=== PATIENT | female | born 1980 ===

== ENCOUNTER 2016-12-16 13:00 | Emergency (ER) | payer OTHER ==
[2016-12-16 13:07] VITALS: RESP 16; TEMP 97.8; O2SAT 100
[2016-12-16] MEDS ORDERED: Sodium Chloride 0.9% 1,000 ML IV ONE (13:19)
--- NOTE | 2016-12-16 13:32 | C.PDOC ---
History Of Present Illness 12/16/2016 Jo Mckeon is a 36 y/o female, whose past medical history includes cholecystectomy, presents to the emergency department complaining of epigastric pain since two days ago. Patient reports having a burning sensation and gastric content that is very acidic in her mouth. Patient states she has food intolerance due to a sharp tearing pain after eating. In addition, patient reports vomiting and one episode of diarrhea when the pain began and the discomfort has been intermittent. Pain is worse and uncomfortable when lying on either side. Patient notes taking Omeprazole this morning, which relieved the pain. Her last menstrual cycle was 12/02/2016. Patient denies chest pain, shortness of breath, headache, fever, chills, cough, dysuria, hematuria, frequency, flank pain, or other complaints. Time Seen by Provider: 12/16/16 13:09 Chief Complaint (Nursing): Abdominal Pain History Per: Patient History/Exam Limitations: no limitations Onset/Duration Of Symptoms: Days (2 days) Current Symptoms Are (Timing): Better (after taking Mitrazol) Location Of Pain/Discomfort: Epigastric Quality Of Discomfort: Sharp, Aching, Burning Associated Symptoms: Vomiting, Diarrhea. denies: Fever, Chest Pain Exacerbating Factors: Other (lying on either side) Abnormal Vaginal Bleeding: No Past Medical History Reviewed: Historical Data, Nursing Documentation, Vital Signs Vital Signs: Last Vital Signs Temp 97.8 F 12/16/16 13:06 Pulse 78 12/16/16 13:06 Resp 16 12/16/16 13:06 BP 111/68 12/16/16 13:06 Pulse Ox 100 12/16/16 13:39 - Medical History PMH: Gastritis Denies: Chronic Kidney Disease - [facility] Procedures ENDOSCOPIC REMOVAL OF STONE(S) FROM BILIARY TRACT (04/01/14) ENDOSCOPIC SPHINCTEROTOMY AND PAPILLOTOMY (04/01/14) INFLUENZA VACCINATION (04/01/14) LAPAROSCOPIC CHOLECYSTECTOMY (04/01/14) Family History: States: Diabetes - Social History Hx Tobacco Use: Yes Hx Alcohol Use: No Hx Substance Use: No - Immunization History Hx Tetanus Toxoid Vaccination: No Hx Influenza Vaccination: No Hx Pneumococcal Vaccination: No Review Of Systems Constitutional: Negative for: Fever Cardiovascular: Negative for: Chest Pain Respiratory: Negative for: Shortness of Breath Gastrointestinal: Positive for: Vomiting, Abdominal Pain (epigastric), Diarrhea Genitourinary: Negative for: Dysuria, Frequency Neurological: Negative for: Headache Physical Exam - Physical Exam Appears: Well, Non-toxic, No Acute Distress Skin: Normal Color, Warm, Dry Head: Atraumatic, Normacephalic Eye(s): bilateral: Normal Inspection, PERRL, EOMI Ear(s): Bilateral: Normal Nose: Normal Oral Mucosa: Moist Tongue: Normal Appearing Lips: Normal Appearing Throat: Normal Neck: Normal Cardiovascular: Rhythm Regular Respiratory: Normal Breath Sounds Gastrointestinal/Abdominal: Bowel Sounds (normal), Tenderness (mild tenderness on epigastric region), No Distention, No Guarding, No Rebound Extremity: Normal ROM Neurological/Psych: Oriented x3, Normal Speech, Normal Cognition Gait: Steady ED Course And Treatment - Laboratory Results Result Diagrams: 12/16/16 13:49 12/16/16 13:49 Lab Interpretation: No Acute Changes O2 Sat by Pulse Oximetry: 100 (air room) Pulse Ox Interpretation: Normal Reevaluation Time: 14:28 Reassessment Condition: Improved (Patient remains comfortable after IV fluids and Pepcid IV.) Medical Decision Making Medical Decision Makin12/16/2016 Impression: 36 y/o female with epigastric pain and food intolerance due to acidic content. Plan: -- Labs -- Urinalysis -- Pepcid and Sodium Chloride -- Reassess and disposition Disposition - Disposition Referrals: Anabelle Craft MD [Staff Provider] - Disposition: HOME/ ROUTINE Disposition Time: 14:28 Condition: IMPROVED Prescriptions: Famotidine [Pepcid] 20 mg PO BID #60 tab Instructions: Epigastric Pain (ED) Forms: [facility] (Citizen [place]) - Clinical Impression Clinical Impression: Epigastric abdominal pain - Scribe Statement The provider has reviewed the documentation as recorded by the Scribe 12/16/2016 Scribe Attestation: Angélica Goodson MD Scribe Attestation: All medical record entries made by the Scribe were at my direction and personally dictated by me. I have reviewed the chart and agree that the record accurately reflects my personal performance of the history, physical exam, medical decision making, and the department course for this patient. I have also personally directed, reviewed, and agree with the discharge instructions and disposition.
[2016-12-16 13:57] LABS: BASO % 0.4 % (0.0-2.0); EOS # 0.1 K/uL (0.0-0.7); EOS % 1.3 % (0.0-4.0); HEMATOCRIT 39.4 % (34.0-47.0); LYMPH # 2.1 K/uL (1.0-4.3); LYMPH % 30.6 % (20.0-40.0); MEAN CELL VOLUME 92.6 fL (81.0-99.0); MEAN CORPUSCULAR HEMOGLOBIN 30.3 pg (27.0-31.0); MEAN CORPUSCULAR HGB CONC 32.8 g/dL (33.0-37.0); MEAN PLATELET VOLUME 9.6 fL (7.2-11.7); MONO # 0.4 K/uL (0.0-0.8); MONO % 5.2 % (0.0-10.0); RED CELL DISTRIBUTION WIDTH 12.8 % (11.5-14.5); WHITE BLOOD COUNT 6.7 K/uL (4.8-10.8)
[2016-12-16 14:01] LABS: RBC URINE 10 /hpf (0-3); URINE BILIRUBIN NEGATIVE (NEGATIVE); URINE BLOOD NEGATIVE (NEGATIVE); URINE COLOR Yellow (YELLOW); URINE GLUCOSE (UA) NORMAL (Normal); URINE KETONE NEGATIVE (NEGATIVE); URINE LEUKOCYTE ESTERASE NEG Leu/uL (Negative); URINE PROTEIN NEGATIVE (NEGATIVE); URINE UROBILINOGEN NORMAL mg/dL (0.2-1.0); WBC URINE 3 /hpf (0-5)
[2016-12-16 14:08] LABS: CHLORIDE 102 mmol/L (98-107); POTASSIUM 3.8 mmol/L (3.6-5.2); SODIUM 142 mmol/L (132-148)
[2016-12-16 14:10] LABS: GFR AFRICAN-AMERICAN > 60
[2016-12-16 14:11] LABS: ALB/GLOB RATIO 1.3 (1.0-2.1); ALKALINE PHOSPHATASE 53 U/L (38-126); ALT/SGPT 56 U/L (9-52); AST/SGOT 34 U/L (14-36); BILIRUBIN,TOTAL 0.5 mg/dL (0.2-1.3); BLOOD UREA NITROGEN 12 mg/dL (7-17); CALCIUM 8.2 mg/dl (8.6-10.4); CARBON DIOXIDE 25 mmol/L (22-30); GLUCOSE,RANDOM 94 mg/dL (65-105); TOTAL PROTEIN 7.2 g/dL (6.3-8.3)
[2016-12-16 14:41] VITALS: BP 119/58; PULSE 67
== END 2016-12-16 14:42 | disposition home or self-care (01) ==
LOC: C.ER 13:00
DX: R10.13 Epigastric pain (principal)
CPT/HCPCS: 80053; 81001; 83690; 84703; 85025; 96361; 96374; 99284; J7040

== ENCOUNTER 2017-04-12 08:52 | Emergency (ER) | payer OTHER ==
[2017-04-12 09:07] VITALS: BMI 21.7
[2017-04-12 09:10] VITALS: RESP 16; O2SAT 100
[2017-04-12] MEDS ORDERED: Sodium Chloride 0.9% 1,000 ML IV ONE (09:52)
[2017-04-12 09:55] LABS: RBC URINE 540 /hpf (0-3); URINE BILIRUBIN NEGATIVE (NEGATIVE); URINE BLOOD 3+ (NEGATIVE); URINE COLOR Yellow (YELLOW); URINE GLUCOSE (UA) NORMAL (Normal); URINE HYALINE CAST 0-2 /lpf (0-2); URINE KETONE TRACE mg/dL (NEGATIVE); URINE LEUKOCYTE ESTERASE NEG Leu/uL (Negative); URINE PROTEIN 1+ mg/dL (NEGATIVE); URINE UROBILINOGEN NORMAL mg/dL (0.2-1.0); WBC URINE 2 /hpf (0-5)
--- NOTE | 2017-04-12 10:13 | C.PDOC ---
History Of Present Illness 36 y/o female with history of Gallbladder stones and cholecystectomy presents to ED with complaints of left flank throbbing pain. She states she went to bathroom and pain worsened after having bowel movement earlier this morning. Patient also complains of lower abdominal pain with associated nausea and vomiting. Patient denies dysuria, hematuria or any other complaints at this time. LMP 04/03/17 Time Seen by Provider: 04/12/17 09:36 Chief Complaint (Nursing): Female Genitourinary History Per: Patient History/Exam Limitations: no limitations Onset/Duration Of Symptoms: Hrs Current Symptoms Are (Timing): Still Present Past Medical History Reviewed: Historical Data, Nursing Documentation, Vital Signs Vital Signs: Last Vital Signs Temp 98.2 F 04/12/17 12:09 Pulse 59 L 04/12/17 12:09 Resp 16 04/12/17 12:09 BP 92/60 L 04/12/17 12:09 Pulse Ox 100 04/12/17 12:09 - Medical History PMH: Gastritis Surgical History: Cholecystectomy - [facility] Procedures ENDOSCOPIC REMOVAL OF STONE(S) FROM BILIARY TRACT (04/01/14) ENDOSCOPIC SPHINCTEROTOMY AND PAPILLOTOMY (04/01/14) INFLUENZA VACCINATION (04/01/14) LAPAROSCOPIC CHOLECYSTECTOMY (04/01/14) Family History: States: Diabetes - Social History Hx Tobacco Use: Yes Hx Alcohol Use: No Hx Substance Use: No - Immunization History Hx Tetanus Toxoid Vaccination: Yes Hx Influenza Vaccination: Yes Hx Pneumococcal Vaccination: Yes Review Of Systems Constitutional: Negative for: Fever, Chills Gastrointestinal: Positive for: Nausea, Vomiting, Abdominal Pain. Negative for : Diarrhea Musculoskeletal: Positive for: Back Pain Skin: Negative for: Rash Physical Exam - Physical Exam Appears: Non-toxic, No Acute Distress Skin: Normal Color, Warm, Dry, No Rash Head: Atraumatic, Normacephalic Eye(s): bilateral: Normal Inspection Oral Mucosa: Moist Neck: Supple Chest: Symmetrical Cardiovascular: Rhythm Regular Respiratory: Normal Breath Sounds, No Rales, No Rhonchi, No Wheezing Gastrointestinal/Abdominal: Soft, No Tenderness, No Guarding, No Rebound Back: Normal Inspection, No CVA Tenderness, No Vertebral Tenderness, No Paraspinal Tenderness Extremity: Normal ROM, Capillary Refill (<2 seconds) Neurological/Psych: Oriented x3, Normal Speech, Normal Motor, Normal Sensation ED Course And Treatment - Laboratory Results Result Diagrams: 12/22/17 10:22 04/12/17 10:22 Lab Interpretation: Abnormal O2 Sat by Pulse Oximetry: 100 (RA) Pulse Ox Interpretation: Normal Medical Decision Making Medical Decision Making: Impression: flank pain Plan: Blood work, CT abdomen w/o contrast, Toradol ordered Progress: Labs reviewed. CT abdomen shows calculus in distal ureter. RE-Eval: Patient reports feeling better, pain has improved. Patient has no fever and appears nontoxic. The plan is to discharge with antibiotics. Patient advised to follow up with PCP Disposition Counseled Patient/Family Regarding: Diagnosis, Need For Followup, Rx Given - Disposition Referrals: Jennifer Bowers MD [Staff Provider] - Disposition: HOME/ ROUTINE Disposition Time: 11:55 Condition: GOOD Additional Instructions: Follow up with your primary medical doctor and urology in 2-5 days for further evaluation. Take medications as prescribed. Return to the emergency department at any time if symptoms persist or worsen. Prescriptions: Ciprofloxacin [Cipro] 1 tab PO BID #14 tab Ibuprofen [Motrin] 600 mg PO Q8 #30 tab Tamsulosin [Flomax] 0.4 mg PO DAILY #10 cap Instructions: Kidney Stones (GEN) Forms: [employer] (Turkish) - POA Present On Arrival: None - Clinical Impression Clinical Impression: Kidney stone - PA / CREAM RIPENER / Resident Statement MD/DO has reviewed & agrees with the documentation as recorded. - Scribe Statement The provider has reviewed the documentation as recorded by the Akil Gonzalez All medical record entries made by the Akil were at my direction and personally dictated by me. I have reviewed the chart and agree that the record accurately reflects my personal performance of the history, physical exam, medical decision making, and the department course for this patient. I have also personally directed, reviewed, and agree with the discharge instructions and disposition.
[2017-04-12] MEDS ORDERED: Sodium Chloride 0.9% 1,000 ML ONE (10:20)
[2017-04-12 10:25] LABS: BASO % 0.4 % (0.0-2.0); EOS % 0.2 % (0.0-4.0); HEMATOCRIT 38.1 % (34.0-47.0); LYMPH # 0.9 K/uL (1.0-4.3); LYMPH % 7.1 % (20.0-40.0); MEAN CELL VOLUME 91.1 fL (81.0-99.0); MEAN PLATELET VOLUME 9.5 fL (7.2-11.7); MONO # 0.3 K/uL (0.0-0.8); MONO % 2.3 % (0.0-10.0); PLATELET COUNT 245 K/uL (130-400); RED CELL DISTRIBUTION WIDTH 12.7 % (11.5-14.5); WHITE BLOOD COUNT 12.6 K/uL (4.8-10.8)
[2017-04-12 10:42] LABS: ALKALINE PHOSPHATASE 52 U/L (38-126); ALT/SGPT 26 U/L (9-52); AST/SGOT 22 U/L (14-36); BILIRUBIN,TOTAL 0.7 mg/dL (0.2-1.3); BLOOD UREA NITROGEN 11 mg/dL (7-17); CALCIUM 9.3 mg/dl (8.6-10.4); CARBON DIOXIDE 29 mmol/L (22-30); CHLORIDE 102 mmol/L (98-107); GFR AFRICAN-AMERICAN > 60; GLUCOSE,RANDOM 106 mg/dL (65-105); POTASSIUM 4.8 mmol/L (3.6-5.2); SODIUM 136 mmol/L (132-148); TOTAL PROTEIN 8.4 g/dL (6.3-8.3)
[2017-04-12 10:45] LABS: ALB/GLOB RATIO 1.1 (1.0-2.1)
[2017-04-12 11:05] LABS: BASOPHIL 1 % (0-2); NEUTROPHIL 82 % (50-75); TOTAL CELLS COUNTED 100
--- NOTE | 2017-04-12 11:10 | CT ---
PROCEDURE: CT scan of the abdomen and pelvis dated 04/12/2017. HISTORY: Left flank pain COMPARISON: Comparison made with CT scan abdomen pelvis 04/05/2014. TECHNIQUE: Contiguous helical/transaxial sections of the abdomen pelvis performed without oral or intravenous contrast material. Coronal and Sagittal reformats generated. Radiation dose: Total exam DLP = 232.15 mGy-cm. This CT exam was performed using one or more of the following dose reduction techniques: Automated exposure control, adjustment of the mA and/or kV according to patient size, and/or use of iterative reconstruction technique. FINDINGS: LOWER THORAX: Lung bases are clear without infiltrate effusion or basilar pneumothorax. Heart size is within range of normal. No significant pericardial effusion. LIVER: The liver exhibits relatively normal size measuring approximately 15.5 cm in CC dimension. No obvious parenchymal nor extra-axial mass or collection seen on this noncontrast study. GALLBLADDER AND BILE DUCTS: Gallbladder has been surgically resected with metallic clips in the gallbladder fossa. PANCREAS: The pancreas is poorly delineated due to the lack of oral and intravenous contrast as well as a paucity of retroperitoneal and intraperitoneal fat. No obvious pancreatic masses, collections or calcifications. . No significant pancreatic ductal dilatation SPLEEN: The spleen exhibits relatively normal size ADRENALS: No gross adrenal lesions. KIDNEYS AND URETERS: Kidneys demonstrate relatively symmetric size. No evidence of nephrolithiasis. There does appear to be mild prominence of the proximal ureter. The mid and distal ureter is difficult to follow because of the aforementioned factors, particularly the lack or paucity of retroperitoneal fat. There is a vague tiny calcific like density in the left aspect of the pelvis in the expected location of the distal ureter that measures approximately 1.4 mm. This could represent a tiny distal left ureteral calculus. Clinical correlation and urinalysis. BLADDER: Urinary bladder is incompletely distended which may account for slight thick-walled appearance. Possibility of a cystitis not excluded clinical correlation recommended. REPRODUCTIVE: The cervix appears somewhat bulky. Consider follow-up dipper fish consultation and Pap smear. APPENDIX: Appendix is not seen with certainty however no obvious inflammatory changes right lower quadrant of the abdomen. BOWEL: Evaluation of the bowel is limited due to the lack of oral contrast. The stomach is incompletely distended which presumably accounts for thick-walled appearance. Visualized loops of small bowel exhibit normal contour and caliber. No evidence of acute mechanical small bowel obstruction. Moderate amount of stool is seen throughout the large bowel suggesting mild fecal retention/constipation. . PERITONEUM: Unremarkable. No fluid collection. No free air. LYMPH NODES: No significant/ bulky adenopathy. VASCULATURE: Unremarkable. No aortic aneurysm. BONES: Osseous structures appear grossly intact without evidence of fractures or destructive lesions. OTHER FINDINGS: None. IMPRESSION: There is a tiny approximate 1.4 mm calcific density in the left aspect of the pelvis in the expected location of the distal left ureter. This could represent a tiny distal left ureteral calculus. Clinical correlation with urinalysis. There is also slight prominence of the proximal ureter. The remaining left ureter cannot be adequately evaluated due to the aforementioned limitations. The slightly bulky appearing cervix ; consider follow-up STEM SHAPER consultation and Pap smear. Status post cholecystectomy. Moderate amount of stool seen throughout the colon suggesting mild constipation.
[2017-04-12] MEDS ORDERED: cefTRIAXone IV 1 gm in Dextros 50 ML IV ONE (11:23)
[2017-04-12 12:10] VITALS: BP 92/60; PULSE 59; TEMP 98.2
== END 2017-04-12 13:00 | disposition home or self-care (01) ==
LOC: C.ER 08:52
DX: N20.0 Calculus of kidney (principal); Z87.891 Personal history of nicotine dependence
CPT/HCPCS: 74176; 80053; 81001; 83690; 84703; 85025; 87086; 96361; 96365; 96375; 99285; J0696; J1885; J7040